=== PATIENT | male | born 1960 | race Caucasian/White ===

== ENCOUNTER 2016-11-09 12:15 | Day surgery (SDC) | payer OTHER ==
[~2016-11-09] VITALS: Ht 188 cm; Wt 90.7 kg
[~2016-11-09 12:15] MED LIST: 0.9% Sodium Chloride 1,000 ML IV SCH; B2/M1TAB PO; BUTTERBUR PO; FEVE1POW PO; MAGN400C PO; MELA1TAB25 SL; Sodium Biphos-Phos 133 mL Enema RECTAL PRN; Sodium Chloride LOK Flush 10 mL Syringe IV PRN; fentaNYL-PF 50 mCg/mL 2 mL Inj IVPUSH PRN
[2016-11-09] MEDS ORDERED: RIBO400T ORAL (13:22)
[2016-11-09] MEDS ORDERED: CHOL200025 PO (13:22)
[2016-11-09 13:23] VITALS: BP 130/83; PULSE 58; RESP 16; O2SAT 97
[2016-11-09 14:12] VITALS: BP 108/72; PULSE 54; RESP 15; O2SAT 97
[2016-11-09 14:20] VITALS: BP 105/69; PULSE 50; RESP 15; O2SAT 95
--- NOTE | 2016-11-09 14:24 | ENDO ---
[address] [address] ENDOSCOPY PROCEDURE PATIENT: HOLLIE MORALES : 1960 MR#: [id number] ADMIT: 11/09/2016 JOB ID: [id number] DATE OF SERVICE: 11/09/2016 PREPROCEDURE DIAGNOSIS: Personal history of colon polyp. POSTPROCEDURE DIAGNOSES: 1. Personal history of colon polyps. 2. Sigmoid diverticula. PROCEDURE: 1. Colonoscopy with biopsies. 2. Terminal ileoscopy. ENDOSCOPIST: Karlos Cahn MD. MEDICATIONS: 1. Versed 3 mg. 2. Fentanyl 100 mcg. 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 This was removed with a hot snare. Three year followup was recommended. He does not have any new change in bowel habits, no blood in his stool, no unplanned weight loss. After discussion of risks and benefits, he agreed to proceed with colonoscopy. FINDINGS: The mucosa at the appendiceal orifice looked somewhat irregular, so a cold forceps biopsy was obtained. There were a few small-mouthed scattered sigmoid diverticula. No other mucosal abnormalities were appreciated. DESCRIPTION OF PROCEDURE: Procedural sedation was achieved. The patient was connected to hemodynamic monitoring, pulse oximetry, capnography. After digital rectal exam, the PCF-H180AL colonoscope was passed under visualization until the ileocecal valve and appendiceal orifice were visualized and photo documented. At the appendiceal orifice, the mucosa looked flat without a clear polyp, but was somewhat different in appearance than the surrounding mucosa. Because of his prior serrated adenoma in the area, I elected to obtain biopsies using cold forceps of the appendiceal orifice, which were sent for permanent pathology. The terminal ileoscopy was performed, which was normal for approximately 10 cm. The scope was then carefully withdrawn. The quality of the prep was good. No other mucosal abnormalities were identified. There were scattered small-mouthed diverticula in the sigmoid colon. Retroflexion was normal in the rectum. The scope was withdrawn and the procedure terminated. He tolerated the entire procedure well. RECOMMENDATIONS: If the appendiceal orifice biopsies show adenomatous change, recommend repeat colonoscopy in three years. If they show normal mucosa, then recommend colonoscopy in five years.
[2016-11-09 14:30] VITALS: BP 125/81; PULSE 55; RESP 15; O2SAT 97
--- NOTE | 2016-11-11 15:22 | PATH ---
SURGICAL PATHOLOGY Attending Physician:Jethro Ludwig CASE STATUS: Signed Out PATIENT NAME: HOLLIE MORALES PID: [id number] : 1960 DATE COLLECTED:11/09/2016 00:00 SPECIMEN: Colon, Biopsy CLINICAL HISTORY: A: APPENDICEAL ORIFICE BIOPSY FINAL DIAGNOSIS: 1.APPENDICEAL ORIFICE BIOPSY: SESSILE SERRATED ADENOMA, MULTIPLE FRAGMENTS. NEGATIVE FOR CYTOLOGIC DYSPLASIA. ICD10 CODE D12.1 GROSS DESCRIPTION: The specimen is received in one formalin filled container labeled with the patient's name, sublabeled "appendiceal orifice" and consists of 2 portions of tissue which aggregate to 0.6 x 0.4 x 0.2 CM. The specimen is entirely submitted in one cassette. 11/10/2016 [facility] MICRO DESCRIPTION: See diagnosis. ICD-9 CODES: CPT CODES: 1: 85365 Electronically Signed Out Shonda Lynn MD [facility] Pathology [facility] [address], [place] [address] Technical component performed at [facility], [address] [place] [address] Ave[address], [place], [address]
== END 2016-11-09 23:59 | disposition home or self-care (01) ==
LOC: END 12:15
PROVIDERS: ATTEND Student in an Organized Health Care Education/Training Program
DX: Z12.11 Encounter for screening for malignant neoplasm of colon (principal); Z86.010 Personal history of colon polyps; D12.1 Benign neoplasm of appendix; K57.30 Diverticulosis of large intestine without perforation or abscess without bleeding; H52.13 Myopia, bilateral
CPT/HCPCS: 45380; 99153; G0500; J2250; J7030